=== PATIENT | male | born 1960 | race Two or more races ===

== ENCOUNTER 2023-05-04 21:37 | Inpatient (IN) | payer MEDICAID, OTHER ==
[~2023-05-04] VITALS: Ht 177.8 cm; Wt 72.2 kg
[2023-05-04 23:01] LABS: Basophils # (auto) 0.1 10 ^3/uL (0-0.2); Basophils % (auto) 0.8 % (0.0-2.0); Eosinophils # (auto) 0 10 ^3/uL (0-0.8); Hematocrit 39.3 % (41.0-53.0); Hemoglobin 13.1 g/dL (13.5-17.5); Lymphocytes # (auto) 0.4 10 ^3/uL (0.4-5.4); Lymphocytes % (auto) 6.6 % (10.0-50.0); Mean Corpuscular Hemoglobin 30.4 pg (28.0-32.0); Mean Corpuscular Hgb Conc. 33.4 g/dL (32.0-36.0); Mean Corpuscular Volume 91.1 fL (80.0-100.0); Monocytes # (auto) 0.4 10 ^3/uL (0-1.3); Monocytes % (auto) 5.9 % (0.0-12.0); Neutrophils # (auto) 5.7 10 ^3/uL (1.6-8.6); Neutrophils % (auto) 86.7 % (37.0-80.0); Red Blood Cells 4.32 10^6/uL (4.5-5.90); Red Cell Distribution Width 13.6 % (11.8-14.3); White Blood Cell 6.6 10^3/uL (4.4-10.8)
[2023-05-04 23:07] LABS: Alanine Aminotransferase 28 U/L (7-40); Albumin 4.8 g/dL (3.2-4.8); Alkaline Phosphatase 117 U/L (46-116); Anion Gap 12 (5-15); Aspartate Aminotransferase 43 U/L (13-40); BUN/Creatinine Ratio 14.1 (10.0-20.0); Bilirubin, Total 0.3 mg/dL (0.2-1.0); Blood Urea Nitrogen 11 mg/dL (9-23); Calcium 9.3 mg/dL (8.7-10.4); Carbon Dioxide 19 mmol/L (20-30); Chloride 100 mmol/L (98-107); Glucose 128 mg/dL (74-106); Lipase 36 U/L (12-53); Potassium 3.8 mmol/L (3.5-5.1); Sodium 131 mmol/L (136-145); Total Protein 7.7 g/dL (5.7-8.2)
[2023-05-05] VITALS (9 sets, daily range): BP systolic 141–146; BP diastolic 76–85; PULSE 60–98; RESP 17–26; TEMP 98–98.1; O2SAT 96–100
[2023-05-05] MEDS ORDERED: ASPirin-EC 325mg tab PO ONE (02:50)
[2023-05-05] MEDS ORDERED: amLODIPine BESYLATE 5 MG TAB PO ONE (03:30)
[2023-05-05 03:48] LABS: Prothrombin Time 10.5 sec (9.3-11.8)
[2023-05-05 03:57] LABS: Acetaminophen < 2.0 UG/ML (10.0-20.0)
[2023-05-05 03:59] LABS: Salicylate < 3.0 mg/dL (2.8-20.0)
[2023-05-05 05:10] LABS: INR 1.03 (0.9-1.15); Partial Thromboplastin Time 28.8 SEC (24.5-34.5); Prothrombin Time 10.8 sec (9.3-11.8)
[2023-05-05] MEDS ORDERED: HEPARIN SODIUM (PORCINE) 5000 UNITS/ML 1ML VIAL IV ONE (05:30)
[2023-05-05] MEDS ORDERED: HEPARIN DRIP/D5W 100UNITS/ML 250 ML IV SCH (05:30)
[2023-05-05] MEDS ORDERED: MORPHINE SULFATE 4 MG/ML SYR/VIAL IV ONE (06:00)
[2023-05-05] MEDS ORDERED: MORPHINE SULFATE INJ 2 MG/ml SYRG IV PRN ×2 (06:30→11:15)
[2023-05-05] MEDS ORDERED: NITROGLYCERIN 0.4 MG SL TAB SL PRN (06:30)
[2023-05-05] MEDS ORDERED: ONDANSETRON HCL 4 MG/2 ML VIAL IV PRN (06:30)
[2023-05-05] MEDS: hydrALAZINE HCL 20 MG/ML VL IV PRN (08:06)
[2023-05-05] MEDS: MORPHINE SULFATE INJ 2 MG/ml SYRG IV PRN ×2 (08:27→22:21)
[2023-05-05] MEDS ORDERED: ONDANSETRON HCL 4 MG/2 ML VIAL ONE (10:24)
[2023-05-05] MEDS ORDERED: MIDAZOLAM HCL 2MG/2ML 2ml VIAL (1mg/ml) ONE ×2 (10:24→13:30)
[2023-05-05] MEDS ORDERED: DexAMETHasone SOD PHOS 10MG/1ML VIAL INJ ONE (10:24)
[2023-05-05] MEDS ORDERED: PROPOFOL 10 MG/ML 20 ML IV ONE ×3 (10:24→14:22)
[2023-05-05] MEDS ORDERED: fentaNYL CITRATE 100 MCG/2 ML VL ONE (10:24)
[2023-05-05] MEDS ORDERED: SODIUM CHLORIDE LOCK 10 ML ONE (10:24)
[2023-05-05] MEDS ORDERED: ceFAZolin 2 GM/D5W100ml 100 ML IV ONE (10:51)
[2023-05-05] MEDS ORDERED: METOCLOPRAMIDE HCL 5MG/ml INJ 2ml VIAL IV PRN (11:15)
[2023-05-05] MEDS ORDERED: HYDROmorphone HCL 2 MG/ML VL/or syr IV PRN ×2 (11:15)
[2023-05-05 11:39] LABS: INR 1.05 (0.9-1.15); Partial Thromboplastin Time 30.4 SEC (24.5-34.5)
[2023-05-05] MEDS ORDERED: LABETALOL HCL 5 MG/ML 4ML SYRINGE IV PRN (12:00)
[2023-05-05] MEDS ORDERED: LABETALOL HCL 5 MG/ML 4ML SYRINGE IV ONE (12:00)
[2023-05-05] MEDS ORDERED: D5W/SOD CHLO 0.9% 1,000 ML IV SCH (12:00)
[2023-05-05] MEDS ORDERED: LIDOCAINE 1% (LOCAL ANESTH.) PF 5ml SDV ONE (12:59)
[2023-05-05] MEDS ORDERED: BUPIVACAINE HCL 0.25% P/F 10 ML VIAL ONE (13:20)
[2023-05-05] MEDS ORDERED: LIDOCAINE W/ EPINEPHRINE 2% INJ 20ML VIAL ONE (13:20)
[2023-05-05] MEDS ORDERED: MEPERIDINE HCL (25 MG/ML) 1ML VIAL ONE (14:48)
[2023-05-05] MEDS ORDERED: ALBUTEROL SULF 2.5 MG/0.5ML(0.5%) NEB SOLN NEB ONE (15:45)
[2023-05-05] MEDS ORDERED: IPRATROPIUM BROM 0.5 MG/2.5ML INH SOL NEB ONE (15:45)
[2023-05-05] MEDS ORDERED: ALBUTEROL SULF 2.5 MG/0.5ML(0.5%) NEB SOLN ONE (15:46)
[2023-05-05] MEDS ORDERED: IPRATROPIUM BROM 0.5 MG/2.5ML INH SOL ONE (15:46)
[2023-05-05] MEDS: D5W/SOD CHL 0.45%/KCL 20MEQ 1,000 ML IV SCH (18:19)
[2023-05-05] MEDS: ceFAZolin 1GM/50ML 50 ML IV SCH ×2 (22:20→22:43)
[2023-05-06] VITALS (9 sets, daily range): BP systolic 108–165; BP diastolic 81–95; PULSE 72–88; RESP 18–19; TEMP 99–100.8; O2SAT 96–97
[2023-05-06] MEDS: ceFAZolin 1GM/50ML 50 ML IV SCH ×3 (05:48→21:00)
[2023-05-06] MEDS: MORPHINE SULFATE INJ 2 MG/ml SYRG IV PRN ×3 (05:49→20:52)
[2023-05-06] MEDS: D5W/SOD CHL 0.45%/KCL 20MEQ 1,000 ML IV SCH ×3 (06:32→20:03)
[2023-05-06 06:38] LABS: Basophils # (auto) 0 10 ^3/uL (0-0.2); Eosinophils # (auto) 0 10 ^3/uL (0-0.8); Hematocrit 34.1 % (41.0-53.0); Hemoglobin 11.2 g/dL (13.5-17.5); Lymphocytes # (auto) 0.7 10 ^3/uL (0.4-5.4); Mean Corpuscular Hemoglobin 30.1 pg (28.0-32.0); Mean Corpuscular Volume 91.4 fL (80.0-100.0); Monocytes % (auto) 14.2 % (0.0-12.0); Neutrophils # (auto) 5.2 10 ^3/uL (1.6-8.6); Neutrophils % (auto) 75.8 % (37.0-80.0); Red Blood Cells 3.73 10^6/uL (4.5-5.90); White Blood Cell 6.9 10^3/uL (4.4-10.8)
[2023-05-06 07:00] LABS: Alanine Aminotransferase 18 U/L (7-40); Albumin 3.7 g/dL (3.2-4.8); Alkaline Phosphatase 85 U/L (46-116); Anion Gap 9 (5-15); Aspartate Aminotransferase 26 U/L (13-40); BUN/Creatinine Ratio 12.3 (10.0-20.0); Blood Urea Nitrogen 9 mg/dL (9-23); Calcium 8.6 mg/dL (8.5-10.1); Carbon Dioxide 23 mmol/L (20-30); Chloride 103 mmol/L (98-107); Glucose 105 mg/dL (74-106); Potassium 4.3 mmol/L (3.5-5.1); Sodium 135 mmol/L (136-145)
[2023-05-06 07:01] LABS: Bilirubin, Total 0.3 mg/dL (0.2-1.0)
[2023-05-06] MEDS: DOCUSATE SOD 100 MG CAP PO SCH (21:00)
[2023-05-06] MEDS: ACETAMINOPHEN 325 MG TAB PO PRN (22:51)
[2023-05-07] VITALS (8 sets, daily range): BP systolic 141–173; BP diastolic 72–98; PULSE 85–124; RESP 18–20; TEMP 98.4–102.8; O2SAT 93–100
[2023-05-07] MEDS: ACETAMINOPHEN 325 MG TAB PO PRN ×2 (04:22→14:02)
[2023-05-07] MEDS: ceFAZolin 1GM/50ML 50 ML IV SCH (05:34)
[2023-05-07 06:25] LABS: Basophils # (auto) 0 10 ^3/uL (0-0.2); Eosinophils # (auto) 0 10 ^3/uL (0-0.8); Hematocrit 34.9 % (41.0-53.0); Hemoglobin 11.6 g/dL (13.5-17.5); Lymphocytes # (auto) 0.5 10 ^3/uL (0.4-5.4); Lymphocytes % (auto) 7.4 % (10.0-50.0); Mean Corpuscular Hemoglobin 30.3 pg (28.0-32.0); Mean Corpuscular Hgb Conc. 33.2 g/dL (32.0-36.0); Mean Corpuscular Volume 91.2 fL (80.0-100.0); Monocytes % (auto) 16.2 % (0.0-12.0); Neutrophils # (auto) 4.8 10 ^3/uL (1.6-8.6); Neutrophils % (auto) 76.4 % (37.0-80.0); Nucleated Red Blood Cells % 0.1 %; Red Blood Cells 3.82 10^6/uL (4.5-5.90); Red Cell Distribution Width 13.6 % (11.8-14.3); White Blood Cell 6.2 10^3/uL (4.4-10.8)
[2023-05-07 06:26] LABS: Anion Gap 9 (5-15); Carbon Dioxide 23 mmol/L (20-30); Chloride 99 mmol/L (98-107); Potassium 3.8 mmol/L (3.5-5.1); Sodium 131 mmol/L (136-145)
[2023-05-07 06:27] LABS: Calcium 8.4 mg/dL (8.5-10.1)
[2023-05-07 06:32] LABS: BUN/Creatinine Ratio 7.6 (10.0-20.0); Blood Urea Nitrogen 5 mg/dL (9-23); Glucose 119 mg/dL (74-106)
[2023-05-07] MEDS: DOCUSATE SOD 100 MG CAP PO SCH ×2 (09:16→22:00)
[2023-05-07] MEDS: HYDROcodone-ACET 10/325MG TAB PO PRN (10:48)
[2023-05-07] MEDS: D5W/SOD CHL 0.45%/KCL 20MEQ 1,000 ML IV SCH (10:48)
[2023-05-07] MEDS: hydrALAZINE HCL 20 MG/ML VL IV PRN (10:49)
[2023-05-07] MEDS ORDERED: LORazepam 2MG/ML-1ML VIAL IV PRN (12:45)
[2023-05-07] MEDS: PIPERACILLIN-TAZOB 3.375GM 100 ML IV SCH ×2 (13:18→22:27)
[2023-05-07] MEDS: NIFEdipine ER 30 MG TAB PO SCH (18:53)
[2023-05-07] MEDS: SODIUM CHLORIDE 0.9% 1,000 ML IV SCH (18:53)
[2023-05-07] MEDS: FOLIC ACID 1 MG, MAGNESIUM SULF SDV 50% 8 MEQ, MULTIPLE VITAMIN 10 ML, THIAMINE INJ 100... INJ SCH ×5 (22:31)
[2023-05-08] VITALS (8 sets, daily range): BP systolic 116–132; BP diastolic 68–73; PULSE 79–116; RESP 18–20; TEMP 98.4–99.8; O2SAT 94–98
[2023-05-08] MEDS: HYDROcodone-ACET 10/325MG TAB PO PRN (02:23)
[2023-05-08] MEDS: PIPERACILLIN-TAZOB 3.375GM 100 ML IV SCH ×4 (05:42→23:45)
[2023-05-08 05:59] LABS: Basophils # (auto) 0 10 ^3/uL (0-0.2); Basophils % (auto) 0.3 % (0.0-2.0); Eosinophils # (auto) 0 10 ^3/uL (0-0.8); Hematocrit 37.9 % (41.0-53.0); Hemoglobin 12.9 g/dL (13.5-17.5); Lymphocytes # (auto) 0.5 10 ^3/uL (0.4-5.4); Lymphocytes % (auto) 8.7 % (10.0-50.0); Mean Corpuscular Hemoglobin 30.8 pg (28.0-32.0); Mean Corpuscular Hgb Conc. 33.9 g/dL (32.0-36.0); Mean Corpuscular Volume 90.9 fL (80.0-100.0); Monocytes # (auto) 0.6 10 ^3/uL (0-1.3); Monocytes % (auto) 10.8 % (0.0-12.0); Neutrophils # (auto) 4.6 10 ^3/uL (1.6-8.6); Neutrophils % (auto) 80.2 % (37.0-80.0); Nucleated Red Blood Cells % 0.1 %; Red Blood Cells 4.17 10^6/uL (4.5-5.90); Red Cell Distribution Width 13.6 % (11.8-14.3); White Blood Cell 5.8 10^3/uL (4.4-10.8)
[2023-05-08 06:17] LABS: Alanine Aminotransferase 23 U/L (7-40); Albumin 3.9 g/dL (3.2-4.8); Alkaline Phosphatase 90 U/L (46-116); Anion Gap 11 (5-15); Aspartate Aminotransferase 41 U/L (13-40); BUN/Creatinine Ratio 11.7 (10.0-20.0); Blood Urea Nitrogen 7 mg/dL (9-23); Calcium 8.2 mg/dL (8.7-10.4); Carbon Dioxide 18 mmol/L (20-30); Chloride 98 mmol/L (98-107); Glucose 107 mg/dL (74-106); Potassium 3.5 mmol/L (3.5-5.1); Sodium 127 mmol/L (136-145)
[2023-05-08 06:18] LABS: Bilirubin, Total 0.4 mg/dL (0.2-1.0); Total Protein 6.4 g/dL (5.7-8.2)
[2023-05-08] MEDS: ACETAMINOPHEN 325 MG TAB PO PRN ×2 (08:09→22:25)
[2023-05-08] MEDS: THIAMINE HCL 100 MG TAB PO SCH (09:30)
[2023-05-08] MEDS: NIFEdipine ER 30 MG TAB PO SCH (09:30)
[2023-05-08] MEDS: MULTIPLE VITAMIN TAB PO SCH (09:30)
[2023-05-08] MEDS: DOCUSATE SOD 100 MG CAP PO SCH ×2 (09:31→22:00)
[2023-05-08] MEDS: SODIUM CHLORIDE 0.9% 1,000 ML IV SCH (09:31)
[2023-05-08] MEDS ORDERED: FUROSEMIDE 20 MG/2 ML VIAL IV ONE (10:30)
[2023-05-08] MEDS ORDERED: VANCOMYCIN PER PHARMACY 0 MG IV SCH (14:45)
[2023-05-08] MEDS ORDERED: VANCOMYCIN 1GM/200ML 200 ML IV ONE (15:15)
[2023-05-08] MEDS: FOLIC ACID 1 MG, MAGNESIUM SULF SDV 50% 8 MEQ, MULTIPLE VITAMIN 10 ML, THIAMINE INJ 100... INJ SCH ×5 (18:39)
[2023-05-08] MEDS: MORPHINE SULFATE INJ 2 MG/ml SYRG IV PRN (20:00)
[2023-05-09] VITALS (9 sets, daily range): BP systolic 109–132; BP diastolic 70–78; PULSE 74–87; RESP 17–22; TEMP 97.5–98.2; O2SAT 97–100
[2023-05-09] MEDS: VANCOMYCIN 1GM/200ML 200 ML IV SCH ×2 (03:45→16:33)
[2023-05-09] MEDS: PIPERACILLIN-TAZOB 3.375GM 100 ML IV SCH ×4 (05:23→20:36)
[2023-05-09 05:24] LABS: Hematocrit 36.7 % (41.0-53.0); Hemoglobin 11.7 g/dL (13.5-17.5); Mean Corpuscular Hemoglobin 30.5 pg (28.0-32.0); Mean Corpuscular Hgb Conc. 31.8 g/dL (32.0-36.0); Mean Corpuscular Volume 95.7 fL (80.0-100.0); Red Blood Cells 3.83 10^6/uL (4.5-5.90); Red Cell Distribution Width 14.5 % (11.8-14.3); White Blood Cell 4.6 10^3/uL (4.4-10.8)
[2023-05-09 05:37] LABS: Basophils % (manual) 0 (0.0-2.0); Blast Cells 0; Eosinophils % (manual) 0 (0-7); Metamyelocytes % 0; Myelocytes % 0; Promyelocytes % 0; Reactive Lymphocytes 0
[2023-05-09 08:32] LABS: Band Neutrophils % (manual) 1; Lymphocytes % (manual) 14 (10.0-50.0); Monocytes % (manual) 19 (0-12)
[2023-05-09 08:33] LABS: Anisocytosis Slight; Hypochromia Slight; Platelet Estimate Adequate
[2023-05-09] MEDS: MULTIPLE VITAMIN TAB PO SCH (09:34)
[2023-05-09] MEDS: THIAMINE HCL 100 MG TAB PO SCH (09:34)
[2023-05-09] MEDS: NIFEdipine ER 30 MG TAB PO SCH (09:35)
[2023-05-09 09:45] LABS: Chloride 99 mmol/L (98-107); Potassium 2.9 mmol/L (3.5-5.1); Sodium 131 mmol/L (136-145)
[2023-05-09 09:46] LABS: Anion Gap 12 (5-15); Calcium 8.6 mg/dL (8.5-10.1); Carbon Dioxide 20 mmol/L (20-30)
[2023-05-09 09:51] LABS: BUN/Creatinine Ratio 11.7 (10.0-20.0); Blood Urea Nitrogen 9 mg/dL (9-23); Glucose 117 mg/dL (74-106)
[2023-05-09] MEDS: DOCUSATE SOD 100 MG CAP PO SCH ×2 (10:00→22:00)
[2023-05-09] MEDS ORDERED: POTASSIUM EFFERVESENT TAB 25 MEQ PO ONE (10:30)
[2023-05-09] MEDS: FOLIC ACID 1 MG, MAGNESIUM SULF SDV 50% 8 MEQ, MULTIPLE VITAMIN 10 ML, THIAMINE INJ 100... INJ SCH ×5 (18:00)
[2023-05-10] VITALS (7 sets, daily range): BP systolic 111–124; BP diastolic 66–72; PULSE 67–86; RESP 17–24; TEMP 97.8–98.6; O2SAT 94–100
[2023-05-10] MEDS: PIPERACILLIN-TAZOB 3.375GM 100 ML IV SCH (01:40)
[2023-05-10] MEDS: VANCOMYCIN 1GM/200ML 200 ML IV SCH (04:02)
[2023-05-10 06:32] LABS: Basophils # (auto) 0 10 ^3/uL (0-0.2); Basophils % (auto) 0.4 % (0.0-2.0); Eosinophils # (auto) 0 10 ^3/uL (0-0.8); Eosinophils % (auto) 0.4 % (0.0-7.0); Hematocrit 32.5 % (41.0-53.0); Hemoglobin 11.1 g/dL (13.5-17.5); Lymphocytes % (auto) 20.5 % (10.0-50.0); Mean Corpuscular Hemoglobin 30.6 pg (28.0-32.0); Mean Corpuscular Hgb Conc. 34.1 g/dL (32.0-36.0); Mean Corpuscular Volume 89.8 fL (80.0-100.0); Monocytes # (auto) 0.7 10 ^3/uL (0-1.3); Monocytes % (auto) 14.5 % (0.0-12.0); Neutrophils # (auto) 3.2 10 ^3/uL (1.6-8.6); Neutrophils % (auto) 64.2 % (37.0-80.0); Red Blood Cells 3.62 10^6/uL (4.5-5.90); Red Cell Distribution Width 13.5 % (11.8-14.3)
[2023-05-10 06:42] LABS: Anion Gap 10 (5-15); Carbon Dioxide 21 mmol/L (20-30); Chloride 103 mmol/L (98-107); Potassium 3.2 mmol/L (3.5-5.1); Sodium 134 mmol/L (136-145)
[2023-05-10 06:44] LABS: Calcium 8.1 mg/dL (8.7-10.4)
[2023-05-10 06:48] LABS: BUN/Creatinine Ratio 12.1 (10.0-20.0); Blood Urea Nitrogen 8 mg/dL (9-23); Glucose 85 mg/dL (74-106)
[2023-05-10] MEDS: DOCUSATE SOD 100 MG CAP PO SCH ×2 (10:00→22:00)
[2023-05-10] MEDS ORDERED: PIPERACILLIN-TAZOB 3.375GM 100 ML IV SCH (10:00)
[2023-05-10] MEDS: THIAMINE HCL 100 MG TAB PO SCH (10:24)
[2023-05-10] MEDS: MULTIPLE VITAMIN TAB PO SCH (10:24)
[2023-05-10] MEDS: NIFEdipine ER 30 MG TAB PO SCH (10:24)
[2023-05-10] MEDS: levoFLOXacin 500 MG TAB PO SCH (10:25)
[2023-05-10] MEDS ORDERED: POTASSIUM EFFERVESENT TAB 25 MEQ PO ONE (13:15)
[2023-05-11] VITALS (7 sets, daily range): BP systolic 105–136; BP diastolic 61–83; PULSE 63–81; RESP 15–18; TEMP 98.1–98.6; O2SAT 95–99
[2023-05-11] MEDS: THIAMINE HCL 100 MG TAB PO SCH (09:14)
[2023-05-11] MEDS: levoFLOXacin 500 MG TAB PO SCH (09:14)
[2023-05-11] MEDS: MULTIPLE VITAMIN TAB PO SCH (09:14)
[2023-05-11] MEDS: DOCUSATE SOD 100 MG CAP PO SCH ×2 (09:14→22:00)
[2023-05-11] MEDS: NIFEdipine ER 30 MG TAB PO SCH (09:15)
[2023-05-11 16:47] LABS: Anion Gap 7 (5-15); Carbon Dioxide 25 mmol/L (20-30); Chloride 105 mmol/L (98-107); Potassium 4.3 mmol/L (3.5-5.1); Sodium 137 mmol/L (136-145)
[2023-05-11 16:49] LABS: Calcium 8.9 mg/dL (8.5-10.1)
[2023-05-11 16:53] LABS: Blood Urea Nitrogen 8 mg/dL (9-23); Glucose 96 mg/dL (74-106)
[2023-05-11] MEDS: HYDROcodone-ACET 10/325MG TAB PO PRN (18:20)
[2023-05-12] VITALS (7 sets, daily range): BP systolic 117–139; BP diastolic 70–84; PULSE 67–91; RESP 16–21; TEMP 97.9–99.1; O2SAT 92–100
[2023-05-12] MEDS: HYDROcodone-ACET 10/325MG TAB PO PRN ×2 (05:10→21:07)
[2023-05-12] MEDS: THIAMINE HCL 100 MG TAB PO SCH (10:07)
[2023-05-12] MEDS: MULTIPLE VITAMIN TAB PO SCH (10:07)
[2023-05-12] MEDS: NIFEdipine ER 30 MG TAB PO SCH (10:07)
[2023-05-12] MEDS: DOCUSATE SOD 100 MG CAP PO SCH ×2 (10:07→21:07)
[2023-05-12] MEDS: levoFLOXacin 500 MG TAB PO SCH (10:07)
[2023-05-13 05:00] VITALS: BP 132/72; PULSE 63; RESP 16; TEMP 97.9; O2SAT 99
[2023-05-13 08:00] VITALS: BP 136/82; PULSE 69; RESP 16; TEMP 36.6; O2SAT 97
[2023-05-13 09:00] VITALS: BP 142/70; PULSE 64; RESP 16; TEMP 98.1; O2SAT 98
[2023-05-13] MEDS: THIAMINE HCL 100 MG TAB PO SCH (10:00)
[2023-05-13] MEDS: DOCUSATE SOD 100 MG CAP PO SCH (10:00)
[2023-05-13] MEDS: MULTIPLE VITAMIN TAB PO SCH (10:00)
[2023-05-13] MEDS: levoFLOXacin 500 MG TAB PO SCH (10:00)
[2023-05-13] MEDS: NIFEdipine ER 30 MG TAB PO SCH (10:01)
[2023-05-13 13:00] VITALS: BP 139/81; PULSE 68; RESP 16; TEMP 97.8; O2SAT 95
[2023-05-13 15:35] VITALS: BP 142/70
[2023-05-13 17:00] VITALS: BP 131/72; PULSE 75; RESP 14; TEMP 98; O2SAT 98
== END 2023-05-13 17:58 | DRG 228 ==
LOC: ER 21:37 → EDBD 21:37 → TELE 05-05 06:28 → TELE-CENTR 05-05 16:28 → CENTRAL 05-09 16:18
PROVIDERS: ADMIT Nurse Practitioner; ATTEND Nurse Practitioner Acute Care
PROC: 0VBF0ZZ Excision of Right Spermatic Cord, Open Approach (ICD-10-PCS; 2023-05-05)
PROC: 0YQ50ZZ Repair Right Inguinal Region, Open Approach (ICD-10-PCS; principal; 2023-05-05 13:11)
DX: K40.30 Unilateral inguinal hernia, with obstruction, without gangrene, not specified as recurrent (principal); I21.A1 Myocardial infarction type 2; K56.609 Unspecified intestinal obstruction, unspecified as to partial versus complete obstruction; E87.1 Hypo-osmolality and hyponatremia; E78.5 Hyperlipidemia, unspecified; F10.129 Alcohol abuse with intoxication, unspecified; I16.0 Hypertensive urgency; N43.3 Hydrocele, unspecified; F17.210 Nicotine dependence, cigarettes, uncomplicated; F10.139 Alcohol abuse with withdrawal, unspecified; E87.70 Fluid overload, unspecified; Y90.9 Presence of alcohol in blood, level not specified; Z59.02 Unsheltered homelessness
CPT/HCPCS: 36415; 74176; 80048; 80053; 80202; 80320; 80329; 82550; 83690; 84484; 85007; 85025; 85027; 85610; 85730; 86850; 86900; 86901; 87040; 87077; 87086; 87186; 93005; 93306; 97110; 97116; 97163; 97530; 99291; G0378; J1100; J2250; J2405; J2543; J2704; J3490

== ENCOUNTER → 2023-11-22 | Outpatient (CLI) | payer MEDICAID ==
[~2023-11-22] VITALS: Ht 177.8 cm; Wt 97.5 kg
[~2023-11-22] MED LIST: ACET-1079 PO; BISA10SU45 RE; CHOL100047 PO; DOCU-94 PO; HYDR-4072 PO; IBUP-1456 PO; LIDO5DIS21 TOP; LORA-1121 PO; MOMLQ GT; THIA100T10 PO
[2023-11-22 12:04] LABS: Urine Bacteria None Seen /hpf (None Seen)
[2023-11-22 12:35] LABS: Urine Blood Negative /uL (Negative); Urine Clarity Clear (Clear); Urine Color Yellow (Yellow); Urine Mucus FEW (None Seen); Urine Protein, UAD TRACE (Negative); Urine Specific Gravity 1.038 (1.001-1.035); Urine Urobilinogen Normal (Negative); Urine WBC 1 /hpf (0 - 3)
[2023-11-22 12:42] LABS: Basophils # (auto) 0.1 10 ^3/uL (0-0.2); Basophils % (auto) 1.2 % (0.0-2.0); Eosinophils # (auto) 0.1 10 ^3/uL (0-0.8); Eosinophils % (auto) 2.6 % (0.0-7.0); Hematocrit 39.5 % (41.0-53.0); Hemoglobin 13.4 g/dL (13.5-17.5); Lymphocytes # (auto) 1.9 10 ^3/uL (0.4-5.4); Lymphocytes % (auto) 34.3 % (10.0-50.0); Mean Corpuscular Hemoglobin 29.3 pg (28.0-32.0); Mean Corpuscular Volume 86.1 fL (80.0-100.0); Monocytes # (auto) 0.6 10 ^3/uL (0-1.3); Neutrophils # (auto) 2.9 10 ^3/uL (1.6-8.6); Neutrophils % (auto) 51.9 % (37.0-80.0); Platelet Count (auto) 258 10^3/uL (140-450); Red Blood Cells 4.59 10^6/uL (4.5-5.90); Red Cell Distribution Width 14.3 % (11.8-14.3); White Blood Cell 5.6 10^3/uL (4.4-10.8)
[2023-11-22 12:49] LABS: INR 0.97 (0.9-1.15); Partial Thromboplastin Time 26.3 SEC (24.5-34.5); Prothrombin Time 10.3 sec (9.3-11.8)
[2023-11-22 13:34] LABS: Alanine Aminotransferase 25 U/L (7-40); Albumin 4.7 g/dL (3.2-4.8); Alkaline Phosphatase 114 U/L (46-116); Anion Gap 6 (5-15); Aspartate Aminotransferase 15 U/L (13-40); BUN/Creatinine Ratio 30.4 (10.0-20.0); Blood Urea Nitrogen 21 mg/dL (9-23); Calcium 9.9 mg/dL (8.7-10.4); Carbon Dioxide 23 mmol/L (20-30); Chloride 111 mmol/L (98-107); Glucose 92 mg/dL (74-106); Sodium 140 mmol/L (136-145)
[2023-11-22 13:36] LABS: Bilirubin, Total 0.4 mg/dL (0.2-1.0); Total Protein 7.4 g/dL (5.7-8.2)
== END | disposition home or self-care (01) ==
LOC: LAB 11:53 → EDSTATUS 11-24 08:15
PROVIDERS: ATTEND Surgery
DX: K40.90 Unilateral inguinal hernia, without obstruction or gangrene, not specified as recurrent (principal)
CPT/HCPCS: 36415; 80053; 81001; 85025; 85610; 85730; 86850; 86900; 86901